=== PATIENT | male | born 1995 ===

== ENCOUNTER 2018-03-23 18:02 | Emergency (ER) | payer SELFPAY ==
[2018-03-23 18:11] VITALS: PULSE 72; RESP 18
[2018-03-23] MEDS ORDERED: Sodium Chloride 0.9% 1,000 ML IV ONE (19:18)
[2018-03-23] MEDS ORDERED: Iohexol 240 (50 ml) PO ONE (19:20)
--- NOTE | 2018-03-23 19:23 | C.PDOC ---
History Of Present Illness 22 year old male presents to the ED c/o upper abdominal pain associated with nausea and vomiting that started this morning. Patient denies fever, chills, diarrhea, dysuria, hematuria, back pain, rash. Chief Complaint (Nursing): Abdominal Pain History Per: Patient History/Exam Limitations: no limitations Onset/Duration Of Symptoms: Hrs Current Symptoms Are (Timing): Still Present Location Of Pain/Discomfort: RUQ, LUQ Quality Of Discomfort: "Pain" Associated Symptoms: Nausea, Vomiting. denies: Diarrhea, Urinary Symptoms Recent travel outside of the [place]: No Additional History Per: Patient Past Medical History Reviewed: Historical Data, Nursing Documentation, Vital Signs Vital Signs: Last Vital Signs Temp 99.3 F 03/23/18 18:07 Pulse 72 03/23/18 18:07 Resp 18 03/23/18 18:07 BP 151/93 H 03/23/18 18:07 Pulse Ox 96 03/23/18 18:07 - Medical History PMH: No Chronic Diseases Surgical History: No Surg Hx Family History: States: Unknown Family Hx - Social History Hx Alcohol Use: No Hx Substance Use: No - Immunization History Hx Tetanus Toxoid Vaccination: No Review Of Systems Constitutional: Negative for: Fever, Chills Respiratory: Negative for: Cough, Shortness of Breath Gastrointestinal: Positive for: Nausea, Vomiting, Abdominal Pain. Negative for: Diarrhea Genitourinary: Negative for: Dysuria, Hematuria Musculoskeletal: Negative for: Back Pain Skin: Negative for: Rash Neurological: Negative for: Weakness, Numbness Physical Exam - Physical Exam Appears: Non-toxic, No Acute Distress Skin: Normal Color, Warm, Dry Head: Atraumatic, Normacephalic Eye(s): bilateral: Normal Inspection Oral Mucosa: Moist Neck: Normal ROM, Supple Chest: Symmetrical Cardiovascular: Rhythm Regular Respiratory: Normal Breath Sounds, No Rales, No Rhonchi, No Wheezing Gastrointestinal/Abdominal: Soft, Tenderness (bilateral upper quadrants, mostly RUQ), No Guarding, No Rebound Back: No CVA Tenderness Extremity: Normal ROM, No Tenderness, No Swelling Neurological/Psych: Oriented x3, Normal Speech, Normal Cognition Gait: Steady ED Course And Treatment - Laboratory Results Result Diagrams: 03/23/18 20:13 03/23/18 20:13 O2 Sat by Pulse Oximetry: 96 (ON RA) Pulse Ox Interpretation: Normal - CT Scan/US CT abd/pelvis Other Rad Studies (CT/US): Read By Radiologist, Radiology Report Reviewed CT/US Interpretation: EXAM: CT Abdomen and Pelvis with IV contrast. CLINICAL HISTORY: Upper abd pain. TECHNIQUE: Axial computed tomography images of the abdomen and pelvis with oral and intravenous contrast. 0.00 mGy-cm. CONTRAST: With; OMNI 240 & 100MLS VISI 320. COMPARISON: None provided. FINDINGS: LUNG BASES: The lung bases appear clear. No pleural effusions are seen. LIVER: Unremarkable. GALLBLADDER AND BILE DUCTS: The gallbladder appears within normal limits. No radioopaque gallstones are seen. No biliary ductal dilatation is evident. PANCREAS: Unremarkable. SPLEEN: Unremarkable. ADRENAL GLANDS: Unremarkable. KIDNEYS, URETERS, AND BLADDER: The kidneys appear within normal limits. There is no hydronephrosis or hydroureter. No urinary calculi are seen. STOMACH AND BOWEL: Thick walled fluid filled duodenum and loops of jejunum as well as ileum compatible with enteritis. Infectious and inflammatory etiologies are considered. APPENDIX: No evidence of acute appendicitis on CT examination. PERITONEUM: No free fluid. No free air. LYMPH NODES: There are scattered borderline enlarged mesenteric lymph nodes present, probably reactive. REPRODUCTIVE: Unremarkable as visualized. VASCULATURE: No evidence of abdominal aortic aneurysm. BONES: No aggressive appearing osseous lesion. No acute osseous pathology evident. IMPRESSION: 1. Enteritis. Infectious and inflammatory etiologies are considered. 2. There are scattered borderline enlarged mesenteric lymph nodes present, probably reactive. . Electronically signed on Mar 23, 2018 10:57:06 PM EST by: Chino Strange M.D., PAT Certified By [facility] & [facility]. Fellowship Trained MRI and CT Specialist Medical Decision Making Medical Decision Making: Plan: * CT abd/pelvis * Labs * Pepcid 20 mg IVP * IV fluids * Toradol 30 mg IVP * UA Disposition Counseled Patient/Family Regarding: Diagnosis - Disposition Referrals: [facility] [Outside] Disposition: HOME/ ROUTINE Disposition Time: 23:09 Condition: STABLE Prescriptions: Ciprofloxacin [Cipro] 1 tab PO BID #14 tab Dicyclomine [Bentyl] 10 mg PO TID #14 cap Instructions: Acute Abdomen (Belly Pain), Adult (DC), Inflammatory Bowel Disease Forms: [employer] (Turkmen) Print Language: FINNISH - POA Present On Arrival: None - Clinical Impression Clinical Impression: Abdominal pain, Enteritis - Scribe Statement The provider has reviewed the documentation as recorded by the Scribe Mahdu Schultz All medical record entries made by the Sanjivibgonzalo were at my direction and personally dictated by me. I have reviewed the chart and agree that the record accurately reflects my personal performance of the history, physical exam, medical decision making, and the department course for this patient. I have also personally directed, reviewed, and agree with the discharge instructions and disposition.
--- NOTE | 2018-03-23 19:23 | C.PDOC ---
Chief Complaint (Nursing): Abdominal Pain Past Medical History Vital Signs: Last Vital Signs Temp 99.3 F 03/23/18 18:07 Pulse 72 03/23/18 18:07 Resp 18 03/23/18 18:07 BP 151/93 H 03/23/18 18:07 Pulse Ox 96 03/23/18 18:07 - Social History Hx Alcohol Use: No Hx Substance Use: No - Immunization History Hx Tetanus Toxoid Vaccination: No ED Course And Treatment O2 Sat by Pulse Oximetry: 96 Disposition - Disposition
[2018-03-23 20:17] LABS: BASO % 0.5 % (0.0-2.0); EOS # 0.1 K/uL (0.0-0.7); EOS % 0.6 % (0.0-4.0); HEMOGLOBIN 16.7 g/dL (12.0-18.0); LYMPH # 1.2 K/uL (1.0-4.3); LYMPH % 11.8 % (20.0-40.0); MEAN CELL VOLUME 82.1 fL (80.0-94.0); MEAN CORPUSCULAR HGB CONC 35.4 g/dL (33.0-37.0); MEAN PLATELET VOLUME 8.1 fL (7.2-11.7); MONO # 0.5 K/uL (0.0-0.8); MONO % 5.5 % (0.0-10.0); NEUT % 81.6 % (50.0-75.0); NRBC % 0.1 % (0.0-2.0); RBC 5.76 Mil/uL (4.40-5.90); RED CELL DISTRIBUTION WIDTH 13.3 % (11.5-14.5); WHITE BLOOD COUNT 9.8 K/uL (4.8-10.8)
[2018-03-23] MEDS ORDERED: Iohexol 240 (50 ml) ONE (20:21)
[2018-03-23 20:31] LABS: ALB/GLOB RATIO 1.5 (1.0-2.1); ALBUMIN 4.9 g/dL (3.5-5.0); ALT/SGPT 136 U/L (21-72); AST/SGOT 47 U/L (17-59); BLOOD UREA NITROGEN 10 mg/dL (9-20); CALCIUM 9.6 mg/dl (8.6-10.4); GFR NON-AFRICAN AMERICAN > 60; LIPASE 86 U/L (23-300)
[2018-03-23 22:14] LABS: URINE BILIRUBIN NEGATIVE (NEGATIVE); URINE BLOOD NEGATIVE (NEGATIVE); URINE CLARITY Clear (Clear); URINE COLOR Yellow (YELLOW); URINE GLUCOSE (UA) NORMAL (Normal); URINE LEUKOCYTE ESTERASE NEG Leu/uL (Negative); URINE PROTEIN NEGATIVE (NEGATIVE); URINE UROBILINOGEN NORMAL mg/dL (0.2-1.0)
[2018-03-23] MEDS ORDERED: Iodixanol 320 MG/ML 100 ML BOTTLE IV ONE (22:19)
[2018-03-23 23:36] VITALS: BP 121/76; TEMP 98.6; O2SAT 98
--- NOTE | 2018-03-24 09:15 | CT ---
CT abdomen and pelvis HISTORY: Upper abdominal pain. COMPARISON: None available. TECHNIQUE: Multiple contiguous axial images were performed through the abdomen and pelvis with the use of intravenous contrast. Subsequently, sagittal and coronal reformatted images were obtained. This CT exam was performed using one or more of the following dose reduction techniques: Automated exposure control, adjustment of the mA and/or kV according to patient size, and/or use of iterative reconstruction technique. FINDINGS: 2 millimeter subpleural nodule at the anterior aspect of the right middle lobe on series 3, image 13. Scattered areas of atelectasis and or consolidation within the lower lobes bilaterally. Bilateral gynecomastia. No pleural or pericardial effusion. Mild fatty infiltration of the liver. Gallbladder is preserved. Spleen is preserved. Adrenal glands are preserved. Pancreas is preserved. Upper abdominal bowel is preserved. Right kidney: No calculi or hydronephrosis. Left Kidney: No calculi or hydronephrosis. Urinary bladder is preserved. Under distended left hemicolon. Fecal retention in the right hemicolon. Contrast partially fills the appendix which is otherwise grossly preserved. Few shotty lymph nodes seen within the right lower quadrant abdominal mesentery which may represent mild mesenteric adenitis. Degenerative changes in the spine. Impression: Shotty right lower quadrant mesenteric lymph nodes noted which may represent a mild mesenteric adenitis. Clinical correlation. Appendix appears grossly preserved with contrast seen within a portion of the appendix. Additional findings as above. A preliminary report was generated at 10:57 p.m. on 03/23/[address] Chino Strange from [employer].
== END 2018-03-23 23:35 | disposition home or self-care (01) ==
LOC: C.ER 18:02
DX: K52.9 Noninfective gastroenteritis and colitis, unspecified (principal)
CPT/HCPCS: 74177; 80053; 81001; 83690; 85025; 96374; 96375; 99284; J1885; J7030; Q9966; Q9967